=== PATIENT | female | born 1955 | race Caucasian/White ===

== ENCOUNTER 2021-04-20 02:10 | Inpatient (IN) ==
[2021-04-20] MEDS ORDERED: Ipratropium/Albuterol Neb 3 ML IH ONE (02:15)
[2021-04-20] MEDS ORDERED: Ondansetron 4 MG/2 ML VIAL IVP ONE (02:15)
[2021-04-20] MEDS ORDERED: Acetaminophen 325 MG TABLET PO ONE (02:15)
[2021-04-20] MEDS ORDERED: Benzonatate 100 MG CAPSULE PO ONE (02:15)
[2021-04-20 03:07] LABS: Basophils % 0.1 %; Hemoglobin 12.6 g/dL (11.5-15.4); Immature Granulocytes % 0.7 % (0-4); Lymphocytes # 1.1 K/mcL (0.6-4.6); Lymphocytes % 8.9 %; Mean Corpuscular HGB Conc 34.1 g/dL (31.6-35.5); Mean Corpuscular Hemoglobin 26.5 pg (28.0-33.3); Mean Platelet Volume 10.7 fL (9.4-12.4); Monocytes # 0.6 K/mcL (0.0-1.3); Monocytes % 5.1 %; Neutrophils # 10.6 K/mcL (1.6-8.9); Platelet Count 221 K/mcL (140-400); Red Blood Count 4.76 M/mcL (3.82-4.97); Red Cell Distribution Width 14.7 % (11.5-14.5); Segmented Neutrophils % 85.2 %; White Blood Count 12.5 K/mcL (4.3-11.1)
[2021-04-20 03:08] LABS: Mean Corpuscular Volume 77.7 fL (83.0-100.0)
[2021-04-20 03:22] LABS: Alanine Aminotransferase 27 Units/L (7-52); Albumin 3.6 g/dL (3.5-5.7); Albumin/Globulin Ratio 1.1 (1.1-2.2); Alkaline Phosphatase 43 Units/L (34-104); Aspartate Amino Transferase 47 Units/L (13-39); BUN/Creatinine Ratio 26 (6-26); Bilirubin,Direct 0.3 mg/dL (0.0-0.2); Bilirubin,Indirect 0.7 mg/dL (0.0-1.0); Blood Urea Nitrogen 15 mg/dL (8-23); C-Reactive Protein 160 mg/L (Less than 10); Calcium 8.6 mg/dL (8.6-10.3); Carbon Dioxide 25 mEq/L (23-29); Chloride 87 mEq/L (98-107); Globulin 3.4 g/dL (2.4-3.5); Glucose 129 mg/dL (70-105); Lactate Dehydrogenase 380 Units/L (140-271); Magnesium 2.2 mg/dL (1.6-2.6); Osmolality,Calculated 267 (280-300); Phosphorous 2.3 mg/dL (2.7-4.5); Potassium 2.6 mEq/L (3.5-5.1); Sodium 127 mEq/L (136-145); Troponin I 0.06 ng/mL (< 0.04); eGFR For African Americans > 60 (> 60); eGFR For Non-African Americans > 60 (> 60)
[2021-04-20 03:30] LABS: INR 1.1; Prothrombin Time 12.6 Seconds (9.4-12.1)
[2021-04-20 03:33] LABS: Activated Partial Thrombo Time 28.1 Seconds (26.0-36.0)
[2021-04-20] MEDS ORDERED: 0.9 % Sodium Chloride 1,000 ML IVC ONE (03:34)
[2021-04-20] MEDS ORDERED: Azithromycin 250 MG TABLET PO ONE (03:35)
[2021-04-20] MEDS ORDERED: cefTRIAXone 1,000 MG in 0.9 % Sodium Chloride Mini Bag 100 ML IVPB ONE (03:35)
[2021-04-20 03:41] LABS: Ferritin 1156 ng/mL (10-120)
[2021-04-20] MEDS ORDERED: Naloxone 0.4 MG/ML INJ IVP PRN (03:57)
[2021-04-20] MEDS ORDERED: Melatonin 3 MG TABLET PO PRN (03:57)
[2021-04-20] MEDS ORDERED: Ondansetron 4 MG/2 ML VIAL IVP PRN (03:57)
[2021-04-20] MEDS ORDERED: *HR* Promethazine 25 MG/ML VIAL IM PRN (03:57)
[2021-04-20] MEDS ORDERED: Potassium Effervescent 25 MEQ TABLET.EFF PO ONE (04:11)
[2021-04-20] MEDS ORDERED: Remdesivir 200 MG in 0.9 % Sodium Chloride 100 ML IVPB ONE (08:00)
[2021-04-20] MEDS: Dexamethasone Sodium Phos/PF 10 MG/ML VIAL IVP SCH (08:44)
[2021-04-20] MEDS: Aspirin 81 MG TAB.CHEW PO SCH (08:44)
[2021-04-20] MEDS: *HR* Enoxaparin 40 MG/0.4 ML SYRINGE SQ SCH (08:45)
[2021-04-20] MEDS ORDERED: Nitroglycerin 0.4 MG TAB.SUBL SL PRN (15:00)
[2021-04-20] MEDS ORDERED: Fluticasone Propionate Nasal 50 MCG/SPRAY BOTTLE NS PRN (15:00)
[2021-04-20] MEDS: hydroCHLOROthiazide 25 MG TABLET PO SCH (16:39)
[2021-04-20] MEDS: Loratadine 10 MG TABLET PO SCH (16:39)
[2021-04-21 01:02] LABS: Alanine Aminotransferase 34 Units/L (7-52); Albumin 3.3 g/dL (3.5-5.7); Alkaline Phosphatase 39 Units/L (34-104); Aspartate Amino Transferase 65 Units/L (13-39); BUN/Creatinine Ratio 29 (6-26); Bilirubin,Direct 0.1 mg/dL (0.0-0.2); Bilirubin,Indirect 0.6 mg/dL (0.0-1.0); Bilirubin,Total 0.7 mg/dL (0.3-1.0); Blood Urea Nitrogen 15 mg/dL (8-23); C-Reactive Protein 127 mg/L (Less than 10); Calcium 8.3 mg/dL (8.6-10.3); Carbon Dioxide 28 mEq/L (23-29); Chloride 95 mEq/L (98-107); Globulin 3.2 g/dL (2.4-3.5); Glucose 118 mg/dL (70-105); Osmolality,Calculated 272 (280-300); Potassium 3.1 mEq/L (3.5-5.1); Sodium 130 mEq/L (136-145); Total Protein 6.5 g/dL (6.4-8.9); Troponin I 0.03 ng/mL (< 0.04); eGFR For African Americans > 60 (> 60); eGFR For Non-African Americans > 60 (> 60)
[2021-04-21 01:25] LABS: Ferritin > 1500 ng/mL (10-120)
[2021-04-21] MEDS: *HR* Enoxaparin 40 MG/0.4 ML SYRINGE SQ SCH (05:22)
[2021-04-21] MEDS: Dexamethasone Sodium Phos/PF 10 MG/ML VIAL IVP SCH (08:37)
[2021-04-21] MEDS: hydroCHLOROthiazide 25 MG TABLET PO SCH (08:37)
[2021-04-21] MEDS: Cholecalciferol (D-3) 1,000 UNIT (25MCG) TABLET PO SCH (08:37)
[2021-04-21] MEDS: Loratadine 10 MG TABLET PO SCH (08:38)
[2021-04-21] MEDS: Aspirin 81 MG TAB.CHEW PO SCH (08:38)
[2021-04-21] MEDS: Remdesivir 100 MG in 0.9 % Sodium Chloride 100 ML IVPB SCH (10:36)
[2021-04-21] MEDS ORDERED: Saline Nasal Spray 44 ML BOTTLE NS PRN (12:03)
[2021-04-21] MEDS ORDERED: D5% in Water 1,000 ML IVC PRN (13:02)
[2021-04-21] MEDS ORDERED: Dextrose Gel 15 GM/37.5 ML TUBE PO PRN ×2 (13:02)
[2021-04-21] MEDS ORDERED: *HR* Dextrose 50 % in Water (Syg) 50 ML SYRINGE IVP PRN (13:02)
[2021-04-21] MEDS: Ipratropium 1 PUFF INHALER IH SCH ×3 (15:42→21:05)
[2021-04-21] MEDS: Insulin LISPRO 300 UNITS/3 ML VIAL SUBQ SCH ×2 (16:36→21:21)
[2021-04-22] MEDS: Ipratropium 1 PUFF INHALER IH SCH ×4 (03:45→22:34)
[2021-04-22] MEDS: *HR* Enoxaparin 40 MG/0.4 ML SYRINGE SQ SCH (04:07)
[2021-04-22 06:39] LABS: Basophils % 0.4 %; Hematocrit 37.1 % (35.3-44.9); Hemoglobin 12.3 g/dL (11.5-15.4); Immature Granulocytes % 1.3 % (0-4); Lymphocytes # 1.3 K/mcL (0.6-4.6); Lymphocytes % 11.8 %; Mean Corpuscular HGB Conc 33.2 g/dL (31.6-35.5); Mean Corpuscular Hemoglobin 27.1 pg (28.0-33.3); Mean Corpuscular Volume 81.7 fL (83.0-100.0); Mean Platelet Volume 10.8 fL (9.4-12.4); Monocytes # 0.8 K/mcL (0.0-1.3); Monocytes % 7.4 %; Neutrophils # 8.9 K/mcL (1.6-8.9); Platelet Count 331 K/mcL (140-400); Red Blood Count 4.54 M/mcL (3.82-4.97); Red Cell Distribution Width 14.8 % (11.5-14.5); Segmented Neutrophils % 79.1 %; White Blood Count 11.3 K/mcL (4.3-11.1)
[2021-04-22] MEDS: Cholecalciferol (D-3) 1,000 UNIT (25MCG) TABLET PO SCH (07:34)
[2021-04-22] MEDS: Aspirin 81 MG TAB.CHEW PO SCH (07:34)
[2021-04-22] MEDS: hydroCHLOROthiazide 25 MG TABLET PO SCH (07:35)
[2021-04-22] MEDS: Loratadine 10 MG TABLET PO SCH (07:35)
[2021-04-22] MEDS: Insulin LISPRO 300 UNITS/3 ML VIAL SUBQ SCH ×4 (07:36→20:44)
[2021-04-22] MEDS: Remdesivir 100 MG in 0.9 % Sodium Chloride 100 ML IVPB SCH (08:10)
[2021-04-22] MEDS: Dexamethasone Sodium Phos/PF 10 MG/ML VIAL IVP SCH (08:29)
[2021-04-22] MEDS ORDERED: Furosemide 40 MG/4 ML VIAL IVP ONE (11:12)
[2021-04-22 14:07] LABS: Alanine Aminotransferase 41 Units/L (7-52); Albumin 3.4 g/dL (3.5-5.7); Albumin/Globulin Ratio 1.2 (1.1-2.2); Alkaline Phosphatase 45 Units/L (34-104); Aspartate Amino Transferase 72 Units/L (13-39); BUN/Creatinine Ratio 38 (6-26); Bilirubin,Total 0.7 mg/dL (0.3-1.0); Blood Urea Nitrogen 21 mg/dL (8-23); C-Reactive Protein 54 mg/L (Less than 10); Calcium 8.8 mg/dL (8.6-10.3); Carbon Dioxide 23 mEq/L (23-29); Chloride 99 mEq/L (98-107); Ferritin 1205 ng/mL (10-120); Globulin 2.9 g/dL (2.4-3.5); Glucose 126 mg/dL (70-105); Osmolality,Calculated 283 (280-300); Potassium 3.9 mEq/L (3.5-5.1); Sodium 134 mEq/L (136-145); Total Protein 6.3 g/dL (6.4-8.9); eGFR For African Americans > 60 (> 60); eGFR For Non-African Americans > 60 (> 60)
[2021-04-22 14:54] LABS: ABG Base Excess 1 mEq/L (-2 to 3); ABG HCO3 25 mEq/L (21-27); ABG Oxygen Saturation 90 % (95-98); ABG PCO2 36 mmHg (35-45); ABG PH 7.45 pH Units (7.32-7.45); ABG PO2 56 mmHg (85-104); ABG TCO2 26 mEq/L (20-26); Blood Gas VT 450 cc
[2021-04-23] MEDS: Ipratropium 1 PUFF INHALER IH SCH ×4 (03:49→23:43)
[2021-04-23] MEDS: *HR* Enoxaparin 40 MG/0.4 ML SYRINGE SQ SCH (04:56)
[2021-04-23 05:27] LABS: Alanine Aminotransferase 38 Units/L (7-52); Albumin 3.3 g/dL (3.5-5.7); Alkaline Phosphatase 47 Units/L (34-104); Aspartate Amino Transferase 54 Units/L (13-39); BUN/Creatinine Ratio 35 (6-26); Bilirubin,Total 0.8 mg/dL (0.3-1.0); Blood Urea Nitrogen 21 mg/dL (8-23); C-Reactive Protein 27 mg/L (Less than 10); Calcium 8.9 mg/dL (8.6-10.3); Carbon Dioxide 25 mEq/L (23-29); Chloride 100 mEq/L (98-107); Globulin 3.2 g/dL (2.4-3.5); Glucose 132 mg/dL (70-105); Osmolality,Calculated 283 (280-300); Potassium 3.6 mEq/L (3.5-5.1); Sodium 134 mEq/L (136-145); Total Protein 6.5 g/dL (6.4-8.9); eGFR For African Americans > 60 (> 60); eGFR For Non-African Americans > 60 (> 60)
[2021-04-23 05:45] LABS: Ferritin 1123 ng/mL (10-120)
[2021-04-23] MEDS: Remdesivir 100 MG in 0.9 % Sodium Chloride 100 ML IVPB SCH (09:31)
[2021-04-23] MEDS: Aspirin 81 MG TAB.CHEW PO SCH (09:32)
[2021-04-23] MEDS: Insulin LISPRO 300 UNITS/3 ML VIAL SUBQ SCH ×4 (09:32→20:50)
[2021-04-23] MEDS: hydroCHLOROthiazide 25 MG TABLET PO SCH (09:33)
[2021-04-23] MEDS: Dexamethasone Sodium Phos/PF 10 MG/ML VIAL IVP SCH (09:33)
[2021-04-23] MEDS: Loratadine 10 MG TABLET PO SCH (09:33)
[2021-04-23] MEDS: Cholecalciferol (D-3) 1,000 UNIT (25MCG) TABLET PO SCH (09:33)
[2021-04-23] MEDS ORDERED: Furosemide 40 MG/4 ML VIAL IVP ONE (12:00)
[2021-04-23] MEDS: *HR* OxyCODONE Immed Rel 5 MG TABLET PO PRN (19:46)
[2021-04-23] MEDS ORDERED: GuaiFENesin Liq 200 MG/10 ML UDC PO PRN (19:51)
[2021-04-23] MEDS: *HR* LORazepam 0.5 MG TABLET PO PRN (23:28)
[2021-04-24] MEDS: Ipratropium 1 PUFF INHALER IH SCH ×4 (04:14→22:20)
[2021-04-24] MEDS: *HR* Enoxaparin 40 MG/0.4 ML SYRINGE SQ SCH (04:59)
[2021-04-24 06:13] LABS: Basophils # 0.2 K/mcL (0.0-0.2); Basophils % 0.7 %; Hematocrit 41.4 % (35.3-44.9); Hemoglobin 13.4 g/dL (11.5-15.4); Immature Granulocytes % 3.6 % (0-4); Lymphocytes # 2.7 K/mcL (0.6-4.6); Lymphocytes % 12.3 %; Mean Corpuscular HGB Conc 32.4 g/dL (31.6-35.5); Mean Corpuscular Volume 80.2 fL (83.0-100.0); Monocytes # 1.6 K/mcL (0.0-1.3); Monocytes % 7.4 %; Neutrophils # 16.6 K/mcL (1.6-8.9); Nucleated Red Blood Cells 0.2 /100 WBC (0); Platelet Count 457 K/mcL (140-400); Red Blood Count 5.16 M/mcL (3.82-4.97); Red Cell Distribution Width 14.7 % (11.5-14.5)
[2021-04-24 06:20] LABS: White Blood Count 21.9 K/mcL (4.3-11.1)
[2021-04-24 06:35] LABS: Alanine Aminotransferase 33 Units/L (7-52); Albumin 3.5 g/dL (3.5-5.7); Albumin/Globulin Ratio 1.2 (1.1-2.2); Alkaline Phosphatase 54 Units/L (34-104); Aspartate Amino Transferase 45 Units/L (13-39); BUN/Creatinine Ratio 43 (6-26); Bilirubin,Total 0.9 mg/dL (0.3-1.0); Blood Urea Nitrogen 29 mg/dL (8-23); Calcium 8.9 mg/dL (8.6-10.3); Carbon Dioxide 23 mEq/L (23-29); Chloride 98 mEq/L (98-107); Globulin 2.9 g/dL (2.4-3.5); Glucose 116 mg/dL (70-105); Osmolality,Calculated 283 (280-300); Potassium 3.5 mEq/L (3.5-5.1); Sodium 133 mEq/L (136-145); Total Protein 6.4 g/dL (6.4-8.9); eGFR For African Americans > 60 (> 60); eGFR For Non-African Americans > 60 (> 60)
[2021-04-24 06:50] LABS: Ferritin 786 ng/mL (10-120)
[2021-04-24] MEDS: Dexamethasone Sodium Phos/PF 10 MG/ML VIAL IVP SCH (09:09)
[2021-04-24] MEDS: Remdesivir 100 MG in 0.9 % Sodium Chloride 100 ML IVPB SCH (09:10)
[2021-04-24] MEDS: Aspirin 81 MG TAB.CHEW PO SCH (09:11)
[2021-04-24] MEDS: Loratadine 10 MG TABLET PO SCH (09:11)
[2021-04-24] MEDS: Insulin LISPRO 300 UNITS/3 ML VIAL SUBQ SCH ×4 (09:11→20:08)
[2021-04-24] MEDS: hydroCHLOROthiazide 25 MG TABLET PO SCH (09:11)
[2021-04-24] MEDS: Cholecalciferol (D-3) 1,000 UNIT (25MCG) TABLET PO SCH (09:11)
[2021-04-24] MEDS: Furosemide 40 MG/4 ML VIAL IVP SCH (11:30)
[2021-04-24 12:46] LABS: C-Reactive Protein 15 mg/L (Less than 10)
[2021-04-24] MEDS: *HR* LORazepam 0.5 MG TABLET PO PRN (16:59)
[2021-04-24] MEDS: *HR* HYDROcodone/Acet 5/325 mg TABLET PO PRN (17:04)
[2021-04-25] MEDS: Ipratropium 1 PUFF INHALER IH SCH ×4 (04:27→20:47)
[2021-04-25] MEDS: *HR* Enoxaparin 40 MG/0.4 ML SYRINGE SQ SCH (05:36)
[2021-04-25] MEDS: *HR* LORazepam 0.5 MG TABLET PO PRN ×3 (05:43→19:56)
[2021-04-25 07:04] LABS: Mean Corpuscular Volume 79.8 fL (83.0-100.0); Mean Platelet Volume 10.2 fL (9.4-12.4)
[2021-04-25 07:06] LABS: Hematocrit 44.6 % (35.3-44.9); Hemoglobin 14.5 g/dL (11.5-15.4); Mean Corpuscular HGB Conc 32.5 g/dL (31.6-35.5); Mean Corpuscular Hemoglobin 25.9 pg (28.0-33.3); Nucleated Red Blood Cells 0.2 /100 WBC (0); Platelet Count 608 K/mcL (140-400); Red Blood Count 5.59 M/mcL (3.82-4.97); Red Cell Distribution Width 14.7 % (11.5-14.5); White Blood Count 29.7 K/mcL (4.3-11.1)
[2021-04-25 07:24] LABS: Alanine Aminotransferase 32 Units/L (7-52); Albumin 3.8 g/dL (3.5-5.7); Albumin/Globulin Ratio 1.3 (1.1-2.2); Alkaline Phosphatase 67 Units/L (34-104); Aspartate Amino Transferase 38 Units/L (13-39); BUN/Creatinine Ratio 44 (6-26); Bilirubin,Total 1.1 mg/dL (0.3-1.0); Blood Urea Nitrogen 37 mg/dL (8-23); Calcium 9.2 mg/dL (8.6-10.3); Carbon Dioxide 24 mEq/L (23-29); Chloride 94 mEq/L (98-107); Glucose 128 mg/dL (70-105); Osmolality,Calculated 286 (280-300); Potassium 3.3 mEq/L (3.5-5.1); Sodium 133 mEq/L (136-145); Total Protein 6.8 g/dL (6.4-8.9); eGFR For African Americans > 60 (> 60); eGFR For Non-African Americans > 60 (> 60)
[2021-04-25 07:40] LABS: Lymphocytes # 5.6 K/mcL (0.6-4.6); Monocytes # 1.8 K/mcL (0.0-1.3); Neutrophils # 22.3 K/mcL (1.6-8.9)
[2021-04-25] MEDS ORDERED: Potassium Chloride Elixir 20 MEQ/15 ML UDC PO ONE (07:40)
[2021-04-25 07:41] LABS: Platelet Estimate Increased (Normal); Reactive Lymphocytes Present (Not Present)
[2021-04-25] MEDS: Loratadine 10 MG TABLET PO SCH (09:40)
[2021-04-25] MEDS: Cholecalciferol (D-3) 1,000 UNIT (25MCG) TABLET PO SCH (09:40)
[2021-04-25] MEDS: Aspirin 81 MG TAB.CHEW PO SCH (09:40)
[2021-04-25] MEDS: Dexamethasone Sodium Phos/PF 10 MG/ML VIAL IVP SCH (09:40)
[2021-04-25] MEDS: Insulin LISPRO 300 UNITS/3 ML VIAL SUBQ SCH ×4 (09:41→19:54)
[2021-04-25] MEDS: Furosemide 40 MG/4 ML VIAL IVP SCH (09:41)
[2021-04-25] MEDS: *HR* HYDROcodone/Acet 5/325 mg TABLET PO PRN ×2 (09:54→19:56)
[2021-04-25] MEDS: hydroCHLOROthiazide 25 MG TABLET PO SCH (13:04)
[2021-04-25] MEDS: *HR* OxyCODONE Immed Rel 5 MG TABLET PO PRN (14:57)
[2021-04-26 02:47] LABS: Eosinophils % 0.1 %; Nucleated Red Blood Cells 0.2 /100 WBC (0)
[2021-04-26 02:49] LABS: Basophils # 0.1 K/mcL (0.0-0.2); Basophils % 0.4 %; Hematocrit 42.4 % (35.3-44.9); Hemoglobin 14.5 g/dL (11.5-15.4); Immature Granulocytes % 4.9 % (0-4); Lymphocytes # 2.1 K/mcL (0.6-4.6); Lymphocytes % 6.6 %; Mean Corpuscular HGB Conc 34.2 g/dL (31.6-35.5); Mean Corpuscular Hemoglobin 27.2 pg (28.0-33.3); Mean Corpuscular Volume 79.4 fL (83.0-100.0); Mean Platelet Volume 10.3 fL (9.4-12.4); Monocytes # 1.6 K/mcL (0.0-1.3); Monocytes % 5.1 %; Platelet Count 498 K/mcL (140-400); Red Blood Count 5.34 M/mcL (3.82-4.97); Red Cell Distribution Width 14.7 % (11.5-14.5); Segmented Neutrophils % 82.9 %
[2021-04-26 02:54] LABS: Alanine Aminotransferase 26 Units/L (7-52); Albumin 3.5 g/dL (3.5-5.7); Albumin/Globulin Ratio 1.2 (1.1-2.2); Alkaline Phosphatase 72 Units/L (34-104); Aspartate Amino Transferase 30 Units/L (13-39); BUN/Creatinine Ratio 52 (6-26); Bilirubin,Total 1.1 mg/dL (0.3-1.0); Blood Urea Nitrogen 35 mg/dL (8-23); C-Reactive Protein < 5 mg/L (Less than 10); Calcium 8.9 mg/dL (8.6-10.3); Carbon Dioxide 26 mEq/L (23-29); Chloride 95 mEq/L (98-107); Globulin 2.9 g/dL (2.4-3.5); Glucose 153 mg/dL (70-105); Lactate Dehydrogenase 549 Units/L (140-271); Osmolality,Calculated 285 (280-300); Potassium 3.2 mEq/L (3.5-5.1); Sodium 132 mEq/L (136-145); Total Protein 6.4 g/dL (6.4-8.9); eGFR For African Americans > 60 (> 60); eGFR For Non-African Americans > 60 (> 60)
[2021-04-26 02:56] LABS: White Blood Count 31.3 K/mcL (4.3-11.1)
[2021-04-26 03:12] LABS: Ferritin 585 ng/mL (10-120)
[2021-04-26] MEDS: Ipratropium 1 PUFF INHALER IH SCH ×4 (04:04→21:19)
[2021-04-26] MEDS: *HR* Enoxaparin 40 MG/0.4 ML SYRINGE SQ SCH ×2 (05:40→21:50)
[2021-04-26] MEDS ORDERED: Isovue-370 500 ML BOTTLE IVP ONE (07:47)
[2021-04-26] MEDS: *HR* OxyCODONE Immed Rel 5 MG TABLET PO PRN (08:38)
[2021-04-26] MEDS: *HR* LORazepam 0.5 MG TABLET PO PRN (08:38)
[2021-04-26] MEDS ORDERED: Norepinephrine 4 MG/254 ML IV.SOLN IVC ONE (10:01)
[2021-04-26] MEDS ORDERED: *HR* Midazolam HCl 2 MG/2 ML VIAL IVP ONE ×3 (10:27→11:09)
[2021-04-26] MEDS ORDERED: *HR* Rocuronium Bromide 50 MG/5 ML VIAL IVP ONE ×3 (10:27→12:53)
[2021-04-26] MEDS ORDERED: 0.9 % Sodium Chloride 1,000 ML ONE (10:42)
[2021-04-26] MEDS ORDERED: *HR* Metoprolol 5 MG/5 ML VIAL IVP ONE (10:50)
[2021-04-26] MEDS: *HR* Metoprolol 5 MG/5 ML VIAL IVP ONE (10:52)
[2021-04-26] MEDS ORDERED: *HR* Etomidate 20 MG/10 ML AMPUL IVP ONE (11:09)
[2021-04-26] MEDS ORDERED: *HR* Midazolam HCl 5 MG/5 ML VIAL IVP ONE (11:09)
[2021-04-26] MEDS ORDERED: *HR* Succinylcholine 200 MG/10 ML VIAL IVP ONE (11:09)
[2021-04-26] MEDS: Midazolam HCl 50 MG/100 ML IV.SOLN IVC SCH ×2 (11:20→19:24)
[2021-04-26] MEDS: FentaNYL (PF) 1,000 MCG/100 ML IV.SOLN IVC SCH ×3 (11:21→22:41)
[2021-04-26] MEDS: Insulin LISPRO 300 UNITS/3 ML VIAL SUBQ SCH ×4 (11:23→22:10)
[2021-04-26] MEDS: hydroCHLOROthiazide 25 MG TABLET PO SCH (11:23)
[2021-04-26] MEDS: Aspirin 81 MG TAB.CHEW PO SCH (11:23)
[2021-04-26] MEDS: Loratadine 10 MG TABLET PO SCH (11:23)
[2021-04-26] MEDS: Cholecalciferol (D-3) 1,000 UNIT (25MCG) TABLET PO SCH (11:24)
[2021-04-26] MEDS: Furosemide 40 MG/4 ML VIAL IVP SCH (11:47)
[2021-04-26] MEDS: Cefepime HCl 2,000 MG in 0.9 % Sodium Chloride Mini Bag 100 ML IVPB SCH ×2 (12:13→21:49)
[2021-04-26] MEDS: Azithromycin 500 MG in 0.9 % Sodium Chloride 250 ML IVPB SCH (12:14)
[2021-04-26] MEDS: Cisatracurium 200 MG in 0.9 % Sodium Chloride 180 ML IVC SCH (12:55)
[2021-04-26] MEDS ORDERED: Artificial Tears SOLN 15 ML BOTTLE BOTH EYES PRN (13:29)
[2021-04-26 14:40] LABS: ABG Base Excess -4 mEq/L (-2 to 3); ABG HCO3 25 mEq/L (21-27); ABG Oxygen Saturation 95 % (95-98); ABG PCO2 59 mmHg (35-45); ABG PH 7.24 pH Units (7.32-7.45); ABG PO2 91 mmHg (85-104); ABG TCO2 27 mEq/L (20-26); Blood Gas VT 400 cc
[2021-04-26] MEDS: Artificial Tears SOLN 15 ML BOTTLE BOTH EYES SCH ×2 (16:25→21:49)
[2021-04-26] MEDS: Chlorhexidine Rinse 15 ML MOUTHWASH MM SCH (21:49)
[2021-04-27] MEDS: Artificial Tears SOLN 15 ML BOTTLE BOTH EYES SCH ×6 (00:50→20:22)
[2021-04-27] MEDS: Insulin LISPRO 300 UNITS/3 ML VIAL SUBQ SCH ×6 (00:51→20:52)
[2021-04-27] MEDS: Midazolam HCl 50 MG/100 ML IV.SOLN IVC SCH ×3 (03:10→21:10)
[2021-04-27] MEDS: Ipratropium 1 PUFF INHALER IH SCH ×4 (03:22→21:22)
[2021-04-27 03:31] LABS: ABG Base Excess -6 mEq/L (-2 to 3); ABG HCO3 28 mEq/L (21-27); ABG Oxygen Saturation 89 % (95-98); ABG PCO2 90 mmHg (35-45); ABG PO2 80 mmHg (85-104); ABG TCO2 30 mEq/L (20-26); Blood Gas Modality ASSIST CONTROL; Blood Gas VT 300 cc
[2021-04-27] MEDS: Norepinephrine 4 MG/254 ML IV.SOLN IVC SCH (03:40)
[2021-04-27 04:33] LABS: Albumin 3.6 g/dL (3.5-5.7); Albumin/Globulin Ratio 1.3 (1.1-2.2); Bilirubin,Total 0.6 mg/dL (0.3-1.0); Calcium 8.9 mg/dL (8.6-10.3); Globulin 2.8 g/dL (2.4-3.5); Total Protein 6.4 g/dL (6.4-8.9)
[2021-04-27 05:20] LABS: Nucleated Red Blood Cells 0.4 /100 WBC (0)
[2021-04-27 05:22] LABS: Basophils # 0.1 K/mcL (0.0-0.2); Basophils % 0.2 %; Hematocrit 50.1 % (35.3-44.9); Hemoglobin 15.8 g/dL (11.5-15.4); Immature Granulocytes % 4.6 % (0-4); Lymphocytes # 1.9 K/mcL (0.6-4.6); Mean Corpuscular HGB Conc 31.5 g/dL (31.6-35.5); Mean Corpuscular Volume 85.5 fL (83.0-100.0); Mean Platelet Volume 10.2 fL (9.4-12.4); Monocytes # 3.2 K/mcL (0.0-1.3); Neutrophils # 55.4 K/mcL (1.6-8.9); Platelet Count 774 K/mcL (140-400); Red Blood Count 5.86 M/mcL (3.82-4.97); Red Cell Distribution Width 15.9 % (11.5-14.5); Segmented Neutrophils % 87.2 %
[2021-04-27 05:24] LABS: White Blood Count 63.5 K/mcL (4.3-11.1)
[2021-04-27] MEDS: FentaNYL (PF) 1,000 MCG/100 ML IV.SOLN IVC SCH ×3 (06:08→20:44)
[2021-04-27] MEDS: Cisatracurium 200 MG in 0.9 % Sodium Chloride 180 ML IVC SCH (07:12)
[2021-04-27 07:57] LABS: ABG Base Excess -2 mEq/L (-2 to 3); ABG HCO3 26 mEq/L (21-27); ABG Oxygen Saturation 94 % (95-98); ABG PCO2 56 mmHg (35-45); ABG PH 7.29 pH Units (7.32-7.45); ABG PO2 80 mmHg (85-104); ABG TCO2 28 mEq/L (20-26); Blood Gas VT 380 cc
[2021-04-27 08:39] LABS: Mean Platelet Volume 10.2 fL (9.4-12.4)
[2021-04-27 08:41] LABS: Hematocrit 49.3 % (35.3-44.9); Hemoglobin 15.5 g/dL (11.5-15.4); Mean Corpuscular HGB Conc 31.4 g/dL (31.6-35.5); Mean Corpuscular Hemoglobin 26.8 pg (28.0-33.3); Mean Corpuscular Volume 85.3 fL (83.0-100.0); Platelet Count 676 K/mcL (140-400); Red Blood Count 5.78 M/mcL (3.82-4.97); Red Cell Distribution Width 15.9 % (11.5-14.5)
[2021-04-27] MEDS: Chlorhexidine Rinse 15 ML MOUTHWASH MM SCH ×2 (08:44→20:22)
[2021-04-27 08:46] LABS: White Blood Count 56.9 K/mcL (4.3-11.1)
[2021-04-27] MEDS: Azithromycin 500 MG in 0.9 % Sodium Chloride 250 ML IVPB SCH (08:58)
[2021-04-27] MEDS: Cefepime HCl 2,000 MG in 0.9 % Sodium Chloride Mini Bag 100 ML IVPB SCH ×2 (08:59→20:35)
[2021-04-27] MEDS: Furosemide 40 MG/4 ML VIAL IVP SCH (09:04)
[2021-04-27] MEDS: Cholecalciferol (D-3) 1,000 UNIT (25MCG) TABLET PO SCH (09:06)
[2021-04-27] MEDS: Pantoprazole 40 MG VIAL IVP SCH (09:06)
[2021-04-27] MEDS: Aspirin 81 MG TAB.CHEW PO SCH (09:06)
[2021-04-27] MEDS: *HR* Enoxaparin 40 MG/0.4 ML SYRINGE SQ SCH ×2 (09:07→20:47)
[2021-04-27] MEDS ORDERED: Albumin 25% 25gram/100mL 25 GM/100 ML IV.SOLN IVPB ONE (11:08)
[2021-04-27 14:21] LABS: ABG Base Excess -1 mEq/L (-2 to 3); ABG HCO3 28 mEq/L (21-27); ABG Oxygen Saturation 91 % (95-98); ABG PCO2 61 mmHg (35-45); ABG PH 7.27 pH Units (7.32-7.45); ABG PO2 72 mmHg (85-104); ABG TCO2 30 mEq/L (20-26); Blood Gas VT 350 cc
[2021-04-27] MEDS ORDERED: 0.9 % Sodium Chloride 500 ML ONE (16:56)
[2021-04-27] MEDS ORDERED: *HR* Metoprolol 5 MG/5 ML VIAL IVP ONE ×2 (16:57→17:03)
[2021-04-27 17:22] LABS: ABG Base Excess -1 mEq/L (-2 to 3); ABG HCO3 27 mEq/L (21-27); ABG Oxygen Saturation 90 % (95-98); ABG PCO2 61 mmHg (35-45); ABG PH 7.26 pH Units (7.32-7.45); ABG PO2 69 mmHg (85-104); ABG TCO2 29 mEq/L (20-26)
[2021-04-27] MEDS: *HR* Metoprolol 5 MG/5 ML VIAL IVP ONE (17:25)
[2021-04-28] MEDS: Artificial Tears SOLN 15 ML BOTTLE BOTH EYES SCH ×7 (00:57→23:51)
[2021-04-28] MEDS: Insulin LISPRO 300 UNITS/3 ML VIAL SUBQ SCH ×7 (00:59→23:51)
[2021-04-28] MEDS: Ipratropium 1 PUFF INHALER IH SCH ×4 (03:11→19:40)
[2021-04-28 03:45] LABS: ABG Base Excess 1 mEq/L (-2 to 3); ABG HCO3 28 mEq/L (21-27); ABG Oxygen Saturation 87 % (95-98); ABG PCO2 56 mmHg (35-45); ABG PH 7.31 pH Units (7.32-7.45); ABG PO2 60 mmHg (85-104); ABG TCO2 30 mEq/L (20-26); Blood Gas Modality ASSIST CONTROL; Blood Gas VT 350 cc
[2021-04-28] MEDS: FentaNYL (PF) 1,000 MCG/100 ML IV.SOLN IVC SCH ×5 (04:00→23:52)
[2021-04-28] MEDS: Cisatracurium 200 MG in 0.9 % Sodium Chloride 180 ML IVC SCH ×2 (04:04→22:01)
[2021-04-28 04:42] LABS: Hematocrit 40.4 % (35.3-44.9); Hemoglobin 12.5 g/dL (11.5-15.4); Mean Corpuscular HGB Conc 30.9 g/dL (31.6-35.5); Mean Corpuscular Hemoglobin 26.7 pg (28.0-33.3); Mean Corpuscular Volume 86.1 fL (83.0-100.0); Mean Platelet Volume 10.6 fL (9.4-12.4); Platelet Count 387 K/mcL (140-400); Red Blood Count 4.69 M/mcL (3.82-4.97); Red Cell Distribution Width 15.7 % (11.5-14.5)
[2021-04-28 04:43] LABS: White Blood Count 40.1 K/mcL (4.3-11.1)
[2021-04-28 05:00] LABS: BUN/Creatinine Ratio 54 (6-26); Blood Urea Nitrogen 37 mg/dL (8-23); Calcium 8.4 mg/dL (8.6-10.3); Carbon Dioxide 27 mEq/L (23-29); Chloride 106 mEq/L (98-107); Glucose 155 mg/dL (70-105); Osmolality,Calculated 304 (280-300); Potassium 4.1 mEq/L (3.5-5.1); Sodium 141 mEq/L (136-145); eGFR For African Americans > 60 (> 60); eGFR For Non-African Americans > 60 (> 60)
[2021-04-28] MEDS: Midazolam HCl 50 MG/100 ML IV.SOLN IVC SCH ×3 (06:10→23:53)
[2021-04-28] MEDS: Norepinephrine 4 MG/254 ML IV.SOLN IVC SCH (06:11)
[2021-04-28] MEDS: Chlorhexidine Rinse 15 ML MOUTHWASH MM SCH ×2 (08:22→19:24)
[2021-04-28] MEDS: Cholecalciferol (D-3) 1,000 UNIT (25MCG) TABLET PO SCH (08:22)
[2021-04-28] MEDS: Pantoprazole 40 MG VIAL IVP SCH (08:22)
[2021-04-28] MEDS: *HR* Enoxaparin 40 MG/0.4 ML SYRINGE SQ SCH ×2 (08:23→19:24)
[2021-04-28] MEDS: Aspirin 81 MG TAB.CHEW GTUBE SCH (08:23)
[2021-04-28] MEDS: Cefepime HCl 2,000 MG in 0.9 % Sodium Chloride Mini Bag 100 ML IVPB SCH ×2 (08:23→19:23)
[2021-04-28] MEDS: Azithromycin 500 MG in 0.9 % Sodium Chloride 250 ML IVPB SCH (08:24)
[2021-04-28] MEDS: Dexmedetomidine HCl 400 MCG/100 ML MLS IVC SCH ×2 (13:51→19:21)
[2021-04-29 03:12] LABS: Eosinophils % 0.4 %; Nucleated Red Blood Cells 0.2 /100 WBC (0)
[2021-04-29 03:14] LABS: Basophils % 0.3 %; Eosinophils # 0.2 K/mcL (0.0-0.6); Hematocrit 39.6 % (35.3-44.9); Hemoglobin 12.5 g/dL (11.5-15.4); Immature Granulocytes % 3.5 % (0-4); Lymphocytes # 1.4 K/mcL (0.6-4.6); Lymphocytes % 3.1 %; Mean Corpuscular HGB Conc 31.6 g/dL (31.6-35.5); Mean Corpuscular Hemoglobin 27.8 pg (28.0-33.3); Mean Platelet Volume 10.6 fL (9.4-12.4); Monocytes # 2.2 K/mcL (0.0-1.3); Monocytes % 4.8 %; Platelet Count 344 K/mcL (140-400); Segmented Neutrophils % 87.9 %
[2021-04-29] MEDS: Norepinephrine 4 MG/254 ML IV.SOLN IVC SCH ×2 (03:15→06:04)
[2021-04-29] MEDS: Artificial Tears SOLN 15 ML BOTTLE BOTH EYES SCH ×6 (03:15→23:10)
[2021-04-29 03:18] LABS: VBG Ionized Calcium 1.24 mmol/L (1.15-1.35)
[2021-04-29] MEDS: Dexmedetomidine HCl 400 MCG/100 ML MLS IVC SCH ×3 (03:19→18:42)
[2021-04-29 03:28] LABS: Basophils # 0.1 K/mcL (0.0-0.2); Neutrophils # 39.8 K/mcL (1.6-8.9); White Blood Count 45.3 K/mcL (4.3-11.1)
[2021-04-29 03:32] LABS: Alanine Aminotransferase 31 Units/L (7-52); Albumin 3.4 g/dL (3.5-5.7); Albumin/Globulin Ratio 1.7 (1.1-2.2); Alkaline Phosphatase 72 Units/L (34-104); Aspartate Amino Transferase 53 Units/L (13-39); BUN/Creatinine Ratio 49 (6-26); Bilirubin,Total 0.6 mg/dL (0.3-1.0); Blood Urea Nitrogen 37 mg/dL (8-23); Calcium 8.4 mg/dL (8.6-10.3); Carbon Dioxide 28 mEq/L (23-29); Chloride 109 mEq/L (98-107); Glucose 194 mg/dL (70-105); Magnesium 2.8 mg/dL (1.6-2.6); Osmolality,Calculated 306 (280-300); Phosphorous 1.9 mg/dL (2.7-4.5); Potassium 5.1 mEq/L (3.5-5.1); Sodium 141 mEq/L (136-145); Total Protein 5.4 g/dL (6.4-8.9); eGFR For African Americans > 60 (> 60); eGFR For Non-African Americans > 60 (> 60)
[2021-04-29 03:35] LABS: Platelet Estimate Normal (Normal); Toxic Granulation Present (Not Present)
[2021-04-29] MEDS: Insulin LISPRO 300 UNITS/3 ML VIAL SUBQ SCH ×6 (03:50→23:45)
[2021-04-29] MEDS: Ipratropium 1 PUFF INHALER IH SCH ×4 (04:48→22:07)
[2021-04-29 04:59] LABS: ABG Base Excess 0 mEq/L (-2 to 3); ABG HCO3 28 mEq/L (21-27); ABG Oxygen Saturation 88 % (95-98); ABG PCO2 57 mmHg (35-45); ABG PO2 63 mmHg (85-104); ABG TCO2 29 mEq/L (20-26)
[2021-04-29] MEDS: FentaNYL (PF) 1,000 MCG/100 ML IV.SOLN IVC SCH ×3 (06:03→20:34)
[2021-04-29] MEDS: *HR* Enoxaparin 40 MG/0.4 ML SYRINGE SQ SCH (08:12)
[2021-04-29] MEDS: Chlorhexidine Rinse 15 ML MOUTHWASH MM SCH ×2 (08:12→20:30)
[2021-04-29] MEDS: Pantoprazole 40 MG VIAL IVP SCH (08:12)
[2021-04-29] MEDS: Cholecalciferol (D-3) 1,000 UNIT (25MCG) TABLET PO SCH (08:12)
[2021-04-29] MEDS: Aspirin 81 MG TAB.CHEW GTUBE SCH (08:12)
[2021-04-29] MEDS: Cefepime HCl 2,000 MG in 0.9 % Sodium Chloride Mini Bag 100 ML IVPB SCH ×2 (08:13→20:30)
[2021-04-29] MEDS: Acetaminophen 325 MG TABLET PO PRN (08:16)
[2021-04-29] MEDS: Midazolam HCl 50 MG/100 ML IV.SOLN IVC SCH ×2 (08:40→16:05)
[2021-04-29] MEDS: Azithromycin 500 MG in 0.9 % Sodium Chloride 250 ML IVPB SCH (10:22)
[2021-04-29] MEDS: Cisatracurium 200 MG in 0.9 % Sodium Chloride 180 ML IVC SCH (16:06)
[2021-04-29] MEDS ORDERED: Amiodarone Premix 150 MG/100 ML BAG IVPB ONE ×2 (18:23→18:25)
[2021-04-29] MEDS ORDERED: Amiodarone Premix 360 MG/200 ML BAG IVC ONE (18:25)
[2021-04-29] MEDS ORDERED: *HR* Heparin 5,000 UNIT/ML VIAL IVP PRN ×2 (18:27)
[2021-04-29] MEDS ORDERED: Heparin 25,000 UNIT/250 ML 25,000 UNIT/250 ML IV.SOLN IVC SCH (18:30)
[2021-04-29] MEDS: Phenylephrine 10 MG in 0.9 % Sodium Chloride 250 ML IVC SCH ×2 (18:37→21:57)
[2021-04-29] MEDS: *HR* Metoprolol 5 MG/5 ML VIAL IVP PRN (18:56)
[2021-04-29 21:12] LABS: Hematocrit 37.3 % (35.3-44.9); Hemoglobin 11.3 g/dL (11.5-15.4); Mean Corpuscular HGB Conc 30.3 g/dL (31.6-35.5); Mean Corpuscular Hemoglobin 27.6 pg (28.0-33.3); Mean Platelet Volume 10.7 fL (9.4-12.4); Platelet Count 297 K/mcL (140-400); Red Cell Distribution Width 16.3 % (11.5-14.5)
[2021-04-29 21:23] LABS: Heparin anti-factor XA UFH 0.47 IU/mL (0.30-0.70); INR 1.3; Prothrombin Time 14.5 Seconds (9.4-12.1)
[2021-04-29 21:44] LABS: White Blood Count 52.9 K/mcL (4.3-11.1)
[2021-04-30] MEDS: Phenylephrine 50 MG in 0.9 % Sodium Chloride 250 ML IVC SCH ×2 (00:05→11:41)
[2021-04-30] MEDS ORDERED: Amiodarone Premix 360 MG/200 ML BAG IVC SCH (00:26)
[2021-04-30] MEDS: Midazolam HCl 50 MG/100 ML IV.SOLN IVC SCH ×2 (00:57→09:58)
[2021-04-30] MEDS: *HR* Metoprolol 5 MG/5 ML VIAL IVP PRN (01:26)
[2021-04-30] MEDS: Dexmedetomidine HCl 400 MCG/100 ML MLS IVC SCH ×2 (02:22→09:59)
[2021-04-30 02:51] LABS: Basophils % 0.3 %; Immature Granulocytes % 3.1 % (0-4); Nucleated Red Blood Cells 0.4 /100 WBC (0)
[2021-04-30 02:53] LABS: Eosinophils # 0.1 K/mcL (0.0-0.6); Eosinophils % 0.2 %; Hematocrit 32.2 % (35.3-44.9); Hemoglobin 9.7 g/dL (11.5-15.4); Lymphocytes # 1.8 K/mcL (0.6-4.6); Lymphocytes % 3.6 %; Mean Corpuscular HGB Conc 30.1 g/dL (31.6-35.5); Mean Corpuscular Hemoglobin 27.2 pg (28.0-33.3); Mean Corpuscular Volume 90.4 fL (83.0-100.0); Mean Platelet Volume 10.7 fL (9.4-12.4); Monocytes # 3.1 K/mcL (0.0-1.3); Monocytes % 6.2 %; Platelet Count 277 K/mcL (140-400); Red Blood Count 3.56 M/mcL (3.82-4.97); Red Cell Distribution Width 16.2 % (11.5-14.5); Segmented Neutrophils % 86.6 %
[2021-04-30 02:55] LABS: VBG Ionized Calcium 0.91 mmol/L (1.15-1.35)
[2021-04-30 02:56] LABS: Basophils # 0.2 K/mcL (0.0-0.2)
[2021-04-30 02:57] LABS: White Blood Count 49.6 K/mcL (4.3-11.1)
[2021-04-30] MEDS: Ipratropium 1 PUFF INHALER IH SCH ×2 (03:04→10:13)
[2021-04-30 03:17] LABS: Alanine Aminotransferase 21 Units/L (7-52); Albumin 2.6 g/dL (3.5-5.7); Albumin/Globulin Ratio 1.6 (1.1-2.2); Alkaline Phosphatase 48 Units/L (34-104); Aspartate Amino Transferase 39 Units/L (13-39); BUN/Creatinine Ratio 60 (6-26); Bilirubin,Total 0.4 mg/dL (0.3-1.0); Blood Urea Nitrogen 29 mg/dL (8-23); Calcium 6.3 mg/dL (8.6-10.3); Carbon Dioxide 21 mEq/L (23-29); Chloride 120 mEq/L (98-107); Globulin 1.6 g/dL (2.4-3.5); Glucose 137 mg/dL (70-105); Magnesium 2.2 mg/dL (1.6-2.6); Osmolality,Calculated 310 (280-300); Phosphorous 1.1 mg/dL (2.7-4.5); Potassium 4.2 mEq/L (3.5-5.1); Sodium 146 mEq/L (136-145); Total Protein 4.2 g/dL (6.4-8.9); eGFR For African Americans > 60 (> 60); eGFR For Non-African Americans > 60 (> 60)
[2021-04-30 03:21] LABS: Anisocytosis 1+ (Not Present); Large Platelets Present (Not Present); Platelet Estimate Normal (Normal)
[2021-04-30 03:34] LABS: ABG Base Excess 0 mEq/L (-2 to 3); ABG HCO3 27 mEq/L (21-27); ABG Oxygen Saturation 88 % (95-98); ABG PCO2 57 mmHg (35-45); ABG PH 7.29 pH Units (7.32-7.45); ABG PO2 62 mmHg (85-104); ABG TCO2 29 mEq/L (20-26); Blood Gas Modality ASSIST CONTROL; Blood Gas VT 350 cc
[2021-04-30] MEDS: Insulin LISPRO 300 UNITS/3 ML VIAL SUBQ SCH ×3 (03:34→11:22)
[2021-04-30] MEDS: Artificial Tears SOLN 15 ML BOTTLE BOTH EYES SCH ×3 (03:34→10:59)
[2021-04-30] MEDS: FentaNYL (PF) 1,000 MCG/100 ML IV.SOLN IVC SCH ×2 (03:55→10:53)
[2021-04-30] MEDS ORDERED: *HR* Digoxin 0.5 MG/2 ML AMPUL IVP ONE ×2 (04:02→05:45)
[2021-04-30] MEDS ORDERED: Calcium Chloride 2,000 MG in 0.9 % Sodium Chloride 100 ML IVPB ONE (04:30)
[2021-04-30] MEDS: Cefepime HCl 2,000 MG in 0.9 % Sodium Chloride Mini Bag 100 ML IVPB SCH (07:32)
[2021-04-30] MEDS: Chlorhexidine Rinse 15 ML MOUTHWASH MM SCH (07:32)
[2021-04-30] MEDS: Cholecalciferol (D-3) 1,000 UNIT (25MCG) TABLET PO SCH (07:33)
[2021-04-30] MEDS: Pantoprazole 40 MG VIAL IVP SCH (07:33)
[2021-04-30] MEDS: Aspirin 81 MG TAB.CHEW GTUBE SCH (07:34)
[2021-04-30] MEDS: Acetaminophen 325 MG TABLET PO PRN (10:58)
[2021-04-30] MEDS: Azithromycin 500 MG in 0.9 % Sodium Chloride 250 ML IVPB SCH (10:58)
[2021-04-30 11:24] VITALS: TEMP 100.6
[2021-04-30 12:04] VITALS: BP 114/53; O2SAT 88
[2021-04-30 12:14] VITALS: PULSE 142
[2021-05-01] MEDS ORDERED: *HR* Digoxin 0.5 MG/2 ML AMPUL IVP SCH (09:00)
== END 2021-04-30 14:50 | disposition expired | DRG 870 ==
LOC: SUATTDRO → CDU 02:10 → EMEROOARM 02:10 → SUATTDRO 07:36 → CDU 10:13 → SUATTDRO 04-21 12:47 → 3NENU 04-21 19:59 → ICNU 04-26 13:58
PROVIDERS: ADMIT Family Medicine; ATTEND Family Medicine